=== PATIENT | male | born 1970 | race Caucasian/White ===

== ENCOUNTER 2019-08-07 21:22 | Emergency (ER) | payer OTHER ==
[2019-08-07 21:49] VITALS: PULSE 69; BMI 29.2
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
[2019-08-07] MEDS ORDERED: SULFAMETHOXAZOLE/TRIMETHOPRIM 800MG/160MG D.S. TABLET PO ONE (23:39)
[2019-08-07] MEDS ORDERED: CEPHALEXIN MONOHYDRATE 500 MG CAPSULE (UD) PO ONE (23:39)
[2019-08-07] MEDS ORDERED: SILVER SULFADIAZINE 1% TOP CREAM 50 GM JAR TP ONE (23:39)
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
[2019-08-07] MEDS ORDERED: CEPHALEXIN MONOHYDRATE 500 MG CAPSULE (UD) ONE (23:51)
[2019-08-08 01:34] VITALS: BP 130/80; TEMP 98.1
== END 2019-08-08 00:55 | disposition short-term general hospital (02) ==
LOC: JER 21:22
DX: T24.202A Burn of second degree of unspecified site of left lower limb, except ankle and foot, initial encounter (principal); X11.0XXA Contact with hot water in bath or tub, initial encounter; Y93.E1 Activity, personal bathing and showering; Y92.031 Bathroom in apartment as the place of occurrence of the external cause; Y99.8 Other external cause status; Z88.6 Allergy status to analgesic agent
CPT/HCPCS: 99283-25